=== PATIENT | male | born 1960 | race Caucasian/White ===

== ENCOUNTER 2018-06-25 18:00 | Observation (INO) ==
--- NOTE | 2018-06-25 20:32 | ED ---
HPI General Chief complaint: Dizziness Stated complaint: dizzy Time Seen by Provider: 06/25/18 20:19 History of Present Illness HPI narrative: 58-year-old male presents to the ED for evaluation of chest pain , shortness of breath and lightheadedness. Patient states that he is writing through on his bicycle from [place] to [place]. States that he met up with some people 3 days ago and drink alcohol and smoked meth and used crack cocaine. States that he "Alarcon acted himself" yesterday because he was feeling as though he was in a bad place. States he was discharged and today throughout the day has had intermittent chest pressure with lightheadedness and shortness of breath. States that he has a strong family history of heart disease and he is concerned that this could be due to his heart. He denies any personal history of heart disease. He denies any fever, chills, nausea, vomiting, cough or cold symptoms. He does admit to feeling anxious. No other complaints. Related Data Home Medications Medication Instructions Recorded Confirmed No Known Home Medications 06/24/18 06/25/18 Allergies Allergy/AdvReac Type Severity Reaction Status Date / Time No Known Allergies Allergy Verified 06/24/18 18:27 Review of Systems ROS: all other systems reviewed are negative [facility] Social History Social History Substance History: Active Abuse Second Hand Smoke Exposure: No Smoking Status: Never smoker How Often Do You Have a Drink Containing Alcohol: 4 or more times a week Recent Travel in [facility] within the Last 8 Weeks: No Recent Out of Country Travel within the Last 8 Weeks: No Substance Abuse Detail Crack/Cocaine: Substance Use Status: Active Immunization History Tetanus Immunization: Unsure Exam Narrative Exam Narrative: GENERAL: Well-nourished and well-developed pleasant male patient in no acute distress who is nontoxic appearing. SKIN: Warm and dry. HEAD: Normocephalic and atraumatic. EYES: No injection, drainage, or hyphema noted. PERRLA. EOMI. ENT: No nasal drainage noted. Oropharynx is clear. NECK: Supple and the trachea is midline. CARDIOVASCULAR: Regular rate and rhythm. RESPIRATORY: Breath sounds are equal bilaterally with no accessory muscle use, wheezing, rhonchi, or crackles. GASTROINTESTINAL: Abdomen is soft, non-tender, and nondistended. MUSCULOSKELETAL: No obvious deformities, swelling, cyanosis, or ecchymosis is present throughout the upper and lower extremities. Patient has full range of motion without any signs of neurovascular compromise. Distal pulses are 2+ throughout. NEUROLOGICAL: Awake, alert, and oriented. Normal speech and gait. Cranial nerves are grossly intact. Course Initial Documented Vital Signs Temperature 97.2 F L 06/25/18 18:14 Pulse Rate 123 H 06/25/18 18:14 Respiratory Rate 16 06/25/18 18:14 Blood Pressure 129/82 06/25/18 18:14 Pulse Oximetry 100 06/25/18 18:14 Last Documented Vital Signs Temperature 97.9 F 06/25/18 22:45 Pulse Rate 106 H 06/25/18 22:45 Respiratory Rate 18 06/25/18 22:45 Blood Pressure 117/80 06/25/18 22:45 Pulse Oximetry 99 06/25/18 22:45 Medical Decision Making PALMER Attestation PALMER supervised visit: Yes Attestation: I, Dr. Gann, have reviewed the advance practice practitioner's documentation and am in agreement, met with the patient face to face, made the diagnosis, and the medical decision making was done by me. The patient was initially evaluated by Sara, the PALMER. Please see their complete history and physical. *My assessment and Findings: The patient presents with a reported history of chest pain, lightheaded sensation, shortness of breath that began yesterday. Patient's examination is remarkable for sinus tachycardia in the low 100s. No pulse deficits to the extremities on simultaneous auscultation and palpation of his radial artery. During the course of the patient's emergency department visit, the patient's history, examination, and differential diagnosis were reviewed with the patient. The patient was placed on a linux server administrator with oximetry and frequent blood pressure monitoring. The patient had IV access obtained and blood work sent for analysis. The patient was initially provided aspirin 324 mg p.o. x1. The patient's diagnostic studies were reviewed and remarkable for A CBC that is remarkable for a monocytosis at 13.4 with a normal white count at 9, PT PTT within normal limits, d-dimer is less than 0.19 decreasing likelihood of pulmonary embolism in this patient with no other significant risk factors, chemistry is remarkable for BUN of 24, creatinine 1.41, total bilirubin 1.4, AST 61, cardiac enzymes initial set within normal limits, total protein 9.3. The patient's chest x-ray shows no acute cardiopulmonary disease. The patient will be admitted to the chest pain center for rule out serial cardiac enzyme protocol followed by consideration of stress testing. The patient's results were discussed with the patient, including the plan of care. I explained that further testing and/ or monitoring is indicated based on the patient's history, examination, and/ or laboratory findings. Therefore, I recommended admission for additional evaluation. The patient expressed understanding and was agreeable with this plan. The patient was admitted to the hospital in stable condition and sent to a bed under the care of the [facility]. [facility] Narrative Medical decision making narrative: 58-year-old male presents to the ED for evaluation of chest pain, lightheadedness and shortness of breath for 1 day. Patient is afebrile, vital signs are stable. Physical examination is unremarkable. Patient was seen in our emergency department yesterday under Alarcon act, labs at that time were unremarkable. He did use cocaine and amphetamines recently. EKG shows normal sinus rhythm with no acute ST elevations or depressions. IV access is obtained, labs of been drawn and sent. Chest x-ray has been ordered and is pending. CBC is unremarkable. Lungs are unremarkable. D-dimer is negative. Creatinine is slightly elevated from yesterday's labs at 1.14 indicating mild dehydration. Patient given IV fluids. Troponin is less than 0.02. Chest x-ray is negative. Workup is unremarkable. Patient stable and without complaint. Patient will be kept in chest pain center under observation. Medical Screen Exam Complete: Yes Emergency Medical Condition: Yes Differential Diagnosis Differential Diagnosis: Anxiety versus substance abuse versus pleurisy versus angina versus PE unlikely Lab Data Result diagrams: 06/25/18 20:38 06/25/18 20:38 Lab Results 06/25/18 06/25/18 06/25/18 Range/Units 20:38 20:38 20:38 WBC 9.0 (4.0-11.0) th/mm3 RBC 5.07 (4.50-5.90) mil/mm3 Hgb 15.5 (13.0-17.0) gm/dL Hct 46.2 (39.0-51.0) % MCV 90.9 (80.0-100.0) fL MCH 30.5 (27.0-34.0) pg MCHC 33.6 (32.0-36.0) % RDW 15.3 (11.6-17.2) % Plt Count 251 (150-450) th/mm3 MPV 7.6 (7.0-11.0) fL Neut % (Auto) 63.2 (16.0-70.0) % Lymph % (Auto) 22.7 (9.0-44.0) % Lynn % (Auto) 13.4 H (0.0-8.0) % Eos % (Auto) 0.2 (0.0-4.0) % Baso % (Auto) 0.5 (0.0-2.0) % Neut # (Auto) 5.7 (1.8-7.7) th/mm3 Lymph # (Auto) 2.0 (1.0-4.8) th/mm3 Lynn # (Auto) 1.2 H (0.0-0.9) th/mm3 Eos # (Auto) 0.0 (0.0-0.4) th/mm3 Baso # (Auto) 0.0 (0.0-0.2) th/mm3 WBC Differential . Differential Comment Auto diff final PT 11.2 (9.8-11.6) sec INR 1.1 Ratio APTT 25.0 (24.3-30.1) sec D-Dimer Quant (PE/DVT) Less than 0.19 (0.00-0.50) mg/L FEU Sodium 137 (136-145) meq/L Potassium 4.4 (3.5-5.1) meq/L Chloride 100 (98-107) meq/L Carbon Dioxide 28.9 (21.0-32.0) meq/L Anion Gap 8 (5-15) meq/L BUN 24 H (7-18) mg/dL Creatinine 1.41 H (0.60-1.30) mg/dL Estimated GFR 52 L (>89) mL/min Random Glucose 98 (74-106) mg/dL Calcium 9.7 (8.5-10.1) mg/dL Total Bilirubin 1.4 H (0.2-1.0) mg/dL AST 61 H (15-37) U/L ALT 77 (12-78) U/L Alkaline Phosphatase 97 (45-117) U/L Total Creatine Kinase (39-308) U/L Troponin I Less than 0.02 L (0.02-0.05) ng/mL Total Protein 9.3 H (6.4-8.2) g/dL Albumin 4.5 (3.4-5.0) g/dL 06/25/18 Range/Units 23:49 WBC (4.0-11.0) th/mm3 RBC (4.50-5.90) mil/mm3 Hgb (13.0-17.0) gm/dL Hct (39.0-51.0) % MCV (80.0-100.0) fL MCH (27.0-34.0) pg MCHC (32.0-36.0) % RDW (11.6-17.2) % Plt Count (150-450) th/mm3 MPV (7.0-11.0) fL Neut % (Auto) (16.0-70.0) % Lymph % (Auto) (9.0-44.0) % Lynn % (Auto) (0.0-8.0) % Eos % (Auto) (0.0-4.0) % Baso % (Auto) (0.0-2.0) % Neut # (Auto) (1.8-7.7) th/mm3 Lymph # (Auto) (1.0-4.8) th/mm3 Lynn # (Auto) (0.0-0.9) th/mm3 Eos # (Auto) (0.0-0.4) th/mm3 Baso # (Auto) (0.0-0.2) th/mm3 WBC Differential Differential Comment PT (9.8-11.6) sec INR Ratio APTT (24.3-30.1) sec D-Dimer Quant (PE/DVT) (0.00-0.50) mg/L FEU Sodium (136-145) meq/L Potassium (3.5-5.1) meq/L Chloride (98-107) meq/L Carbon Dioxide (21.0-32.0) meq/L Anion Gap (5-15) meq/L BUN (7-18) mg/dL Creatinine (0.60-1.30) mg/dL Estimated GFR (>89) mL/min Random Glucose (74-106) mg/dL Calcium (8.5-10.1) mg/dL Total Bilirubin (0.2-1.0) mg/dL AST (15-37) U/L ALT (12-78) U/L Alkaline Phosphatase (45-117) U/L Total Creatine Kinase 139 (39-308) U/L Troponin I Less than 0.02 L (0.02-0.05) ng/mL Total Protein (6.4-8.2) g/dL Albumin (3.4-5.0) g/dL Imaging Data Radiologist's impression: Chest X-Ray 06/25/18 20:31 CONCLUSION: No active disease. Discharge Plan Discharge Disposition Patient Disposition: 30 Still Patient Discharge Details Diagnosis: Chest pain Physicians Team ED Provider: Lisbet Gann ED Midlevel Provider: Sara Bridges Primary Care Provider: Bisi Alvarado, Attending Provider: Herman Sanz Status ED Status: Left Department Discharge Information Discharge Date/Time: 06/25/18 22:39
[2018-06-25] MEDS ORDERED: Sod Chloride 0.9% Inj 1,000 ML IV.SIG SCH ×2 (20:45→22:00)
[2018-06-25 20:54] LABS: Baso % (Auto) 0.5 % (0.0-2.0); Eos % (Auto) 0.2 % (0.0-4.0); Hematocrit 46.2 % (39.0-51.0); Hemoglobin 15.5 gm/dL (13.0-17.0); Lymph % (Auto) 22.7 % (9.0-44.0); Mean Corpuscular HGB Conc 33.6 % (32.0-36.0); Mean Corpuscular Hemoglobin 30.5 pg (27.0-34.0); Mean Corpuscular Volume 90.9 fL (80.0-100.0); Mean Platelet Volume 7.6 fL (7.0-11.0); Mono # (Auto) 1.2 th/mm3 (0.0-0.9); Mono % (Auto) 13.4 % (0.0-8.0); Neut # (Auto) 5.7 th/mm3 (1.8-7.7); Neut % (Auto) 63.2 % (16.0-70.0); Platelet Count 251 th/mm3 (150-450); Red Blood Count 5.07 mil/mm3 (4.50-5.90); Red Cell Distribution Width 15.3 % (11.6-17.2)
[2018-06-25 21:04] LABS: INR 1.1 Ratio; Prothrombin Time 11.2 sec (9.8-11.6)
--- NOTE | 2018-06-25 21:15 | XR ---
EXAM DATE: 06/25/2018 8:31 PM EDT AGE/SEX: 58 years / Male INDICATIONS: Chest pain. CLINICAL DATA: This is the patient's initial encounter. Patient reports that signs and symptoms have been present for 1 day and indicates a pain score of 3/10. MEDICAL/SURGICAL HISTORY: None. None. COMPARISON: . FINDINGS: A single AP view of the chest demonstrates the lungs to be symmetrically aerated without evidence of mass, infiltrate or effusion. The cardiomediastinal contours are unremarkable. Osseous structures a re intact. CONCLUSION: No active disease. Electronically signed by: Augustus Otero MD 06/25/2018 9:14 PM EDT
[2018-06-25 21:24] LABS: Alanine Aminotransferase 77 U/L (12-78); Albumin 4.5 g/dL (3.4-5.0); Alkaline Phosphatase 97 U/L (45-117); Anion Gap 8 meq/L (5-15); Aspartate Aminotransferase 61 U/L (15-37); Blood Urea Nitrogen 24 mg/dL (7-18); Calcium 9.7 mg/dL (8.5-10.1); Carbon Dioxide 28.9 meq/L (21.0-32.0); Chloride 100 meq/L (98-107); Glomerular Filtration Rate 52 mL/min (>89); Glucose,Random 98 mg/dL (74-106); Potassium 4.4 meq/L (3.5-5.1); Sodium 137 meq/L (136-145); Total Protein 9.3 g/dL (6.4-8.2)
[2018-06-25] MEDS ORDERED: Acetaminophen 500 MG Tablet PO PRN (21:59)
[2018-06-26 00:33] LABS: Creatine Kinase 139 U/L (39-308)
[2018-06-26 03:35] VITALS: TEMP 97.5
[2018-06-26 04:13] LABS: Creatine Kinase 184 U/L (39-308)
[2018-06-26 07:54] VITALS: BP 130/57; PULSE 74; RESP 16; O2SAT 94
--- NOTE | 2018-06-26 09:30 | P.HPCA ---
History of Present Illness Primary Care Physician: Bisi Alvarado Chief Complaint: Chest pain History of Present Illness: This is a 58-year-old male that presents to ED with complaint of chest pain and shortness of breath that began yesterday. Discomfort he describes as lasting for seconds at a time but continues to recur. When asked what he thinks may have caused his discomfort he replies "I smoked crack cocaine and crystal meth 3 days ago and that may have something to do with it." Currently has no chest discomfort. Denied nausea or diaphoresis. States he is riding a bicycle in [place] to [place] and averages about 71 miles a day and is never had a discomfort with that. Denies hypertension, hyperlipidemia, diabetes, and known CAD. States both parents had MIs in their 50s/60s. Admits to using crystal meth and crack cocaine 3 days ago. Denies tobacco abuse. He also admits drinking alcohol 3 days ago but states he does not really do that that often. - Diagnosis (1) Chest pain (2) Substance abuse Review of Systems General: Patient denies fevers, chills, and recent travel. HEENT: Patient denies headache, sore throat, difficulty swallowing. Cardiovascular: Has the chest discomfort as mentioned above. Denies sensation of heart beating rapidly or irregularly. No syncope. Respiratory: He was short of breath. Denies inspirational chest discomfort. Denies coughing wheezing or hemoptysis. GI: Patient denies nausea, vomiting, diarrhea, abdominal pain, bloody stools. Musculoskeletal: Patient denies joint pain or edema. Denies calf pain or edema. Neurovascular: Patient denies numbness, tingling, weakness in extremities. Denies headache. Endocrine: Denies polyuria and polydipsia. Hematologic: Denies easy bruising. Skin: Denies rash or itching. PMFSH - History History Provided By: Patient - Medical History Medical History: Medical History (Last Reviewed 06/25/18 @ 19:53 by Lilian Jarquin) Depression - Surgical History Surgical History: Surgical History (Last Reviewed 06/25/18 @ 19:53 by Lilian Jarquin) H/O knee surgery - Tobacco History Second Hand Smoke Exposure: No Smoking Status: Never smoker - Alcohol History How Often Do You Have a Drink Containing Alcohol: 4 or more times a week - Substance Use History Substance History: Active Abuse - Substance Use Type Crack/Cocaine Type: Meth, cocaine Status: Active Route Used: Inhalation Last Used: 06/22 Reason for Use: Calm Down - Travel History Recent Travel in the [place] Within the Last 8 Weeks: No Recent Travel Out of the Country Within the Last 8 Weeks: No - Immunization History Tetanus Immunization: Unsure Medications and Allergies Active Medications: Active Medications Acetaminophen (Tylenol) 500 mg PO Q4H PRN PRN Reason: HEADACHE Sodium Chloride (Ns Inj) 1,000 mls @ 0 mls/hr IV.SIG BOLUS LESLIE Last Infusion: 06/25/18 21:39 Dose: Infused Sodium Chloride (Ns Inj) 1,000 mls @ 0 mls/hr IV.SIG BOLUS LESLIE Ondansetron HCl (Zofran Inj) 4 mg IV.PUSH Q6H PRN PRN Reason: NAUSEA Sodium Chloride (Ns Flush) 2 ml IV.FLUSH UNSCH PRN PRN Reason: FLUSH AFTER USING IV ACCESS Sodium Chloride (Ns Flush) 2 ml IV.FLUSH BID LESLIE Sodium Chloride (Ns Flush) 2 ml IV.FLUSH PRN PRN PRN Reason: FLUSH AFTER USING IV ACCESS Allergies Allergy/AdvReac Type Severity Reaction Status Date / Time No Known Allergies Allergy Verified 06/24/18 18:27 Home Medications Medication Instructions Recorded Confirmed Type No Known Home Medications 06/24/18 06/25/18 History Exam Vital signs: Vital Signs 06/25/18 18:14 06/25/18 19:53 06/25/18 20:31 Temperature 97.2 F L Pulse Rate 123 H 90 90 Respiratory Rate 16 20 18 Blood Pressure 129/82 116/83 122/85 Pulse Oximetry 100 100 99 06/25/18 22:24 06/25/18 22:45 06/26/18 02:12 Temperature 97.9 F Pulse Rate 35 L 106 H 64 Respiratory Rate 18 18 Blood Pressure 114/78 117/80 Pulse Oximetry 100 99 06/26/18 03:31 06/26/18 07:51 Temperature 97.5 F L 97.5 F L Pulse Rate 75 74 Respiratory Rate 19 16 Blood Pressure 111/73 130/57 L Pulse Oximetry 100 94 L Intake & Output 06/25/18 06/26/18 06/26/18 18:59 06:59 18:59 Intake Total 1240 / 1240 Balance 1240 / 1240 Weight 68.039 kg 68.039 kg Intake: IV 1000 / 1000 NS Inj 1,000 ML @ Wide Open IV. 1000 / 1000 SIG BOLUS LESLIE Rx#:[id number] Oral 240 / 240 Other: # Voids 1 Date of Last Bowel Movement 06/22/18 Weight On Admission 68.039 kg Narrative: GENERAL: This is a well-nourished, well-developed patient, in no apparent distress. Patient speaks in clear complete sentences. Patient is pleasant. HEENT: Head is atraumatic and normocephalic. Neck is supple without lymphadenopathy and trachea is midline. No JVD or carotid bruits. CARDIOVASCULAR: Regular rate and rhythm without murmurs, gallops, or rubs. RESPIRATORY: Clear to auscultation. Breath sounds equal bilaterally. No wheezes , rales, or rhonchi. Chest wall is nontender. No use of accessory muscles. GASTROINTESTINAL: Abdomen is nontender, nondistended. Abdomen soft. No obvious pulsatile mass or bruit. No CVA tenderness. Strong femoral pulses bilaterally. Normal bowel sounds in all quadrants. MUSCULOSKELETAL: Patient is moving upper and lower extremities freely. No calf tenderness or edema, no Homans sign. Strong pulses in upper and lower extremities. NEUROLOGICAL: Patient is alert and oriented. Cranial nerves 2-12 are grossly intact. No focal deficits and speech is clear. SKIN: No rash and turgor is normal. Results 06/25/18 20:38 06/25/18 20:38 Cardiac Enzymes 06/25/18 06/25/18 06/26/18 Range/Units 20:38 23:49 02:40 AST 61 H (15-37) U/L Troponin I Less than 0.02 L Less than 0.02 L Less than 0.02 L (0.02-0.05) ng/mL Coagulation 06/25/18 Range/Units 20:38 PT 11.2 (9.8-11.6) sec APTT 25.0 (24.3-30.1) sec CBC 06/25/18 Range/Units 20:38 WBC 9.0 (4.0-11.0) th/mm3 RBC 5.07 (4.50-5.90) mil/mm3 Hgb 15.5 (13.0-17.0) gm/dL Hct 46.2 (39.0-51.0) % Plt Count 251 (150-450) th/mm3 Neut # (Auto) 5.7 (1.8-7.7) th/mm3 Lymph # (Auto) 2.0 (1.0-4.8) th/mm3 [place] # (Auto) 1.2 H (0.0-0.9) th/mm3 Eos # (Auto) 0.0 (0.0-0.4) th/mm3 Baso # (Auto) 0.0 (0.0-0.2) th/mm3 Comprehensive Metabolic Panel 06/25/18 Range/Units 20:38 Sodium 137 (136-145) meq/L Potassium 4.4 (3.5-5.1) meq/L Chloride 100 (98-107) meq/L Carbon Dioxide 28.9 (21.0-32.0) meq/L BUN 24 H (7-18) mg/dL Creatinine 1.41 H (0.60-1.30) mg/dL Calcium 9.7 (8.5-10.1) mg/dL AST 61 H (15-37) U/L ALT 77 (12-78) U/L Alkaline Phosphatase 97 (45-117) U/L Total Protein 9.3 H (6.4-8.2) g/dL Albumin 4.5 (3.4-5.0) g/dL Intake and Output 06/25/18 06/26/18 06/26/18 22:59 06:59 14:59 Intake Total 1000 / 1000 240 / 240 Balance 1000 / 1000 240 / 240 Intake: IV 1000 / 1000 NS Inj 1,000 ML @ Wide Open IV. 1000 / 1000 SIG BOLUS LESLIE Rx#:[id number] Oral 240 / 240 Other: # Voids 1 Date of Last Bowel Movement 06/22/18 Weight 68.039 kg Weight On Admission 68.039 kg - Imaging and Cardiology Imaging: Impressions Chest X-Ray 06/25/18 20:31 CONCLUSION: No active disease. EKG interpretations - EKG EKG shows: sinus rhythm (EKGs are sinus rhythm without significant ST segment depressions or elevations.) Caprini VTE Risk Assessment Caprini VTE Risk Assessment: No/Low Risk (score <= 1) Caprini Risk Assessment Model: Point Value = 1 Point Value = 2 Point Value = 3 Point Value = 5 Age 41-60 Minor surgery BMI > 25 kg/m2 Swollen legs Varicose veins or History of unexplained or recurrent spontaneous Oral contraceptives or hormone replacement Sepsis (< 1 month) Serious lung disease, including pneumonia (< 1 month) Abnormal pulmonary function Acute myocardial infarction Congestive heart failure (< 1 month) History of inflammatory bowel disease Medical patient at bed rest Age 61-74 Arthroscopic surgery Major open surgery (> 45 min) Laparoscopic surgery (> 45 min) Malignancy Confined to bed (> 72 hours) Immobilizing plaster cast Central venous access Age >= 75 History of VTE Family history of VTE Factor V Leiden Prothrombin [id number] Lupus anticoagulant Anticardiolipin antibodies Elevated serum homocysteine Heparin-induced thrombocytopenia Other congenital or acquired thrombophilia Stroke (< 1 month) Elective arthroplasty Hip, pelvis, or leg fracture Acute spinal cord injury (< 1 month) Prophylaxis Regimen: Total Risk Factor Score Risk Level Prophylaxis Regimen 0-1 Low Early ambulation 2 Moderate Order ONE of the following: *Sequential Compression Device (SCD) *Heparin 5000 units SQ BID 3-4 Higher Order ONE of the following medications: *Heparin 5000 units SQ TID *Enoxaparin/Lovenox 40 mg SQ daily (WT < 150 kg, CrCl > 30 mL/min) *Enoxaparin/Lovenox 30 mg SQ daily (WT < 150 kg, CrCl > 10-29 mL/min) *Enoxaparin/Lovenox 30 mg SQ BID (WT < 150 kg, CrCl > 30 mL/min) AND/OR *Sequential Compression Device (SCD) 5 or more Highest Order ONE of the following medications: *Heparin 5000 units SQ TID (Preferred with Epidurals) *Enoxaparin/Lovenox 40 mg SQ daily (WT < 150 kg, CrCl > 30 mL/min) *Enoxaparin/Lovenox 30 mg SQ daily (WT < 150 kg, CrCl > 10-29 mL/min) *Enoxaparin/Lovenox 30 mg SQ BID (WT < 150 kg, CrCl > 30 mL/min) AND *Sequential Compression Device (SCD) Assessment and Plan - Assessment (1) Chest pain Code(s): R07.9 - Chest pain, unspecified Status: Acute (2) Substance abuse Code(s): F19.10 - Other psychoactive substance abuse, uncomplicated Status: Acute - Plan * Chest pain: Patient had serial cardiac enzymes and EKGs for ruling out purposes. He was seen by Dr. Kyle Dillon of cardiology and chest pain center. He did a Jose protocol ETT, walk to about 78-79%. I reviewed this with Dr. Kyle Dillon and the ETT looked okay, patient will be discharged at this time. He is advised to follow-up with PCP. Return to ED for interval issues. * Substance abuse: Patient has been advised to no longer use illicit drugs. Patient is stable at this time. He is agreeable to this plan. H&P: Quality - VTE Deep Vein Thrombosis/Pulmonary Embolism Present on Admission: No (1) Chest pain Qualifiers: Chest pain type: unspecified Qualified Code(s): R07.9 - Chest pain, unspecified
--- NOTE | 2018-06-26 11:25 | P.CONPSY ---
Provisional Diagnosis Admission Date: June 25, 2018 21:59 [place].: Polysubstance dependence History of Present Illness Service: ER Primary Care Provider: Bisi Alvarado Chief Complaint: Chest pain History of Present Illness: The patient is a 58-year-old man, domiciled in [facility], single , unemployed, with a psychiatric history of polysubstance dependence including methamphetamines, cocaine, alcohol, who presents to the ED for evaluation of chest pain, shortness of breath and lightheadedness. Patient states that he is writing through on his bicycle from [place] to [place]. States that he met up with some people 3 days ago and drink alcohol and smoked meth and used crack cocaine. States that he "Alarcon acted himself" yesterday because he was feeling as though he was in a bad place "and I did not have a place to go, and I was very intoxicated". States he was discharged and today throughout the day has had intermittent chest pressure with lightheadedness and shortness of breath. Patient is requesting to be kept in the hospital at least another day until he can figure out how he is going to get back to [place]. At this moment he denies suicidal and was ideation, he denies visual and auditory hallucinations PMFSH - History History Provided By: Patient - Medical History Medical History: Medical History (Last Reviewed 06/25/18 @ 19:53 by Lilian Jarquin) Depression - Surgical History Surgical History: Surgical History (Last Reviewed 06/25/18 @ 19:53 by Lilian Jarquin) H/O knee surgery - Tobacco History Second Hand Smoke Exposure: No Smoking Status: Never smoker - Alcohol History How Often Do You Have a Drink Containing Alcohol: 4 or more times a week - Substance Use History Substance History: Active Abuse - Substance Use Type Crack/Cocaine Type: Meth, cocaine Status: Active Route Used: Inhalation Last Used: 06/22 Reason for Use: Calm Down - Travel History Recent Travel in the [place] Within the Last 8 Weeks: No Recent Travel Out of the Country Within the Last 8 Weeks: No - Immunization History Tetanus Immunization: Unsure Medications and Allergies Active Medications: Active Medications Acetaminophen (Tylenol) 500 mg PO Q4H PRN PRN Reason: HEADACHE Sodium Chloride (Ns Inj) 1,000 mls @ 0 mls/hr IV.SIG BOLUS LESLIE Last Infusion: 06/25/18 21:39 Dose: Infused Sodium Chloride (Ns Inj) 1,000 mls @ 0 mls/hr IV.SIG BOLUS LESLIE Ondansetron HCl (Zofran Inj) 4 mg IV.PUSH Q6H PRN PRN Reason: NAUSEA Sodium Chloride (Ns Flush) 2 ml IV.FLUSH UNSCH PRN PRN Reason: FLUSH AFTER USING IV ACCESS Sodium Chloride (Ns Flush) 2 ml IV.FLUSH BID LESLIE Last Admin: 06/26/18 10:51 Dose: Not Given Sodium Chloride (Ns Flush) 2 ml IV.FLUSH PRN PRN PRN Reason: FLUSH AFTER USING IV ACCESS Allergies Allergy/AdvReac Type Severity Reaction Status Date / Time No Known Allergies Allergy Verified 06/24/18 18:27 Home Medications Medication Instructions Recorded Confirmed Type No Known Home Medications 06/24/18 06/25/18 History Exam Vital signs: Vital Signs 06/25/18 18:14 06/25/18 19:53 06/25/18 20:31 Temperature 97.2 F L Pulse Rate 123 H 90 90 Respiratory Rate 16 20 18 Blood Pressure 129/82 116/83 122/85 Pulse Oximetry 100 100 99 06/25/18 22:24 06/25/18 22:45 06/26/18 02:12 Temperature 97.9 F Pulse Rate 35 L 106 H 64 Respiratory Rate 18 18 Blood Pressure 114/78 117/80 Pulse Oximetry 100 99 06/26/18 03:31 06/26/18 07:51 Temperature 97.5 F L 97.5 F L Pulse Rate 75 74 Respiratory Rate 19 16 Blood Pressure 111/73 130/57 L Pulse Oximetry 100 94 L Intake & Output 06/25/18 06/26/18 06/26/18 18:59 06:59 18:59 Intake Total 1240 / 1240 Balance 1240 / 1240 Weight 68.039 kg 68.039 kg Intake: IV 1000 / 1000 NS Inj 1,000 ML @ Wide Open IV. 1000 / 1000 SIG BOLUS LESLIE Rx#:[id number] Oral 240 / 240 Other: # Voids 1 Date of Last Bowel Movement 06/22/18 Weight On Admission 68.039 kg Mental Status Examination Appearance: Appropriate Consciousness: Alert Orientation: x4 Motor Activity: Normal gait Speech: Unremarkable Language: Adequate Fund of Knowledge: Adequate Attention and Concentration: Adequate Memory: Unremarkable Mood: Appropriate Affect: Appropriate Thought Process & Associations: Intact Thought Content: Appropriate Hallucination Type: None Delusion Type: None Suicidal Ideation: No Suicidal Plan: No Suicidal Intention: No Homicidal Ideation: No Homicidal Plan: No Homicidal Intention: No Insight: Adequate Judgment: Adequate Assessment and Plan - Assessment (1) Malingering Code(s): Z76.5 - Malingerer [conscious simulation] Status: Acute (2) Polysubstance dependence Code(s): F19.20 - Other psychoactive substance dependence, uncomplicated Status: Acute - Plan Plan: Estimated LOS: [] days On my psychiatric evaluation today the patient is clinically sober, no withdrawal symptoms present at the moment. Is logical, coherent and relevant, calm and cooperative, denies symptomatology of depression, denies anxiety, denies ascencion and psychosis. He denies suicidal and homicidal ideation, he denies visual and auditory hallucinations. He does not meet criteria for involuntary psychiatric admission. His recent expressed psychiatric symptoms were most probably the result of polysubstance intoxication as well as conscious simulation in order to use the hospital as a penitentiary. Alarcon act will be lifted Justification for Continued Inpatient Stay: No admission is indicated.
--- NOTE | 2018-06-26 14:03 | ECG ---
Date Performed: 06/25/2018 Time Performed: 20:08:28 PTAGE: 58 years EKG: Sinus rhythm NORMAL ECG NO PREVIOUS TRACING DOCTOR: Kyle Dillon Interpretating Date/Time 06/26/2018 14:01:11
--- NOTE | 2018-06-26 14:05 | ECG ---
Date Performed: 06/26/2018 Time Performed: 00:13:53 PTAGE: 58 years EKG: Sinus rhythm NORMAL ECG PREVIOUS TRACING : 06/25/2018 20.08 Since previous tracing, no significant change noted DOCTOR: Kyle Dillon Interpretating Date/Time 06/26/2018 14:02:16
--- NOTE | 2018-06-26 14:06 | ECG ---
Date Performed: 06/26/2018 Time Performed: 03:26:14 PTAGE: 58 years EKG: Sinus rhythm WITH SHORT MN INTERVAL BORDERLINE ECG PREVIOUS TRACING : 06/26/2018 00.13 Since previous tracing, no significant change noted DOCTOR: Kyle Dillon Interpretating Date/Time 06/26/2018 14:03:44
--- NOTE | 2018-06-26 14:08 | TR ---
Date Performed: 06/26/2018 Time Performed: 08:38:18 DOCTOR: Kyle Dillon DRUG LIST: CLINICAL HISTORY: REASON FOR TEST: REASON FOR ENDING: OBSERVATION: CONCLUSION: BRCUE PROTOCOL. NO CP. MILD SOB.TEST STOPPED SECONDARY TO LEG FATIGUE.Maximum HR=1 29 % Max HR Achieved=79.0% Total Exercise Time=5:31 COMMENTS: Patient exercised using the Jose protocol. No electrocardiographic changes were seen to suggest ischemia. Hemodynamic response to exercise was normal. No significant arrhythmia was prese nt.
== END 2018-06-26 12:27 | disposition home or self-care (01) ==
LOC: NEDA 18:00 → NEPE 18:00 → NEDA 22:39 → NEPGCP 22:41
PROVIDERS: ADMIT Internal Medicine Interventional Cardiology; ATTEND Internal Medicine Interventional Cardiology